=== PATIENT | male | born 1990 | race Caucasian/White ===

== ENCOUNTER 2017-02-08 22:51 | Emergency (ER) | payer OTHER ==
[~2017-02-08] VITALS: Ht 193 cm; Wt 225.0 kg
[2017-02-08] MEDS ORDERED: HYDROmorphone HCL 1 MG/ML SYRINGE (J1170) IM ONE (23:15)
[2017-02-08] MEDS ORDERED: AMPICILLIN SOD/SULBACTAM SOD 1.5 GM in D5W MINI-BAG PLUS 50 ML IV ONE (23:45)
--- NOTE | 2017-02-09 | REPUSA ---
CT of the facial bones without contrast Clinical history: Pain, injury. Technique: Multiple axial CT images were obtained through the facial bones and paranasal sinuses util izing 3 mm axial slices without administration of contrast. Coronal and sagittal reconstructions were also obtained. Findings: There is an oblique,, minimally laterally displaced fracture at the angle of the left mindi ible, with significant surrounding subcutaneous emphysema. There is also an acute nondisplaced fractu re in the right anterior aspect of the mandible, with the fracture extending into the base of the ora l cavity. The visualized paranasal sinuses are clear, other than a large mucus retention cyst in the inferior right maxillary sinus. There is also minimal chronic mucosal changes in the inferior left ma xillary sinus. The osteomeatal complexes are patent bilaterally. The nasal septum is midline. The vis ualized mastoid air cells are clear. Impression: 1. Acute laterally displaced fracture of the angle of the left mandible, with significant surroundin g subcutaneous emphysema. 2. Acute, nondisplaced fracture of the right anterior mandible. Subcutaneous emphysema is seen in the posterior mandibular soft tissues at the site as well. 3. The temporomandibular joints are grossly intact bilaterally. 4. Chronic mucosal changes in the maxillary sinuses bilaterally as described.
[2017-02-09] MEDS ORDERED: HYDROmorphone HCL 1 MG/ML SYRINGE (J1170) IV ONE (01:30)
[2017-02-09 02:10] VITALS: BP 142/83
== END 2017-02-09 02:19 | disposition short-term general hospital (02) ==
LOC: M ED 22:51
DX: S02.652A Fracture of angle of left mandible, initial encounter for closed fracture (principal); S02.69XA Fracture of mandible of other specified site, initial encounter for closed fracture; S02.5XXA Fracture of tooth (traumatic), initial encounter for closed fracture; Y04.8XXA Assault by other bodily force, initial encounter; Y92.148 Other place in prison as the place of occurrence of the external cause; Y93.89 Activity, other specified; Y99.8 Other external cause status
CPT/HCPCS: 70486; 96372; 96374; 96375; 99284; J1170